=== PATIENT | male | born 1960 | race Caucasian/White ===

== ENCOUNTER 2016-10-03 04:21 | Observation (INO) | payer SELFPAY ==
[~2016-10-03] VITALS: Ht 180.3 cm; Wt 63.4 kg
--- NOTE | ~2016-10-03 | OR ---
PATIENT'S NAME: MCKENNA [facility] AGE: 56 Y [address] ROOM: [address] [address] [place] [facility] [place]: 10[place]03[place] OR/Procedure Report DISCHARGE DATE: 10/04/2016 FAMILY PHYSICIAN: Maxine Guzman MD ATTENDING PHYSICIAN: MAXINE MCCLENDON SURGEON: Maxine Mcclendon MD WEIGHTS AND MEASURES INSPECTOR: Francisco Castillo CST/CAM. DATE OF PROCEDURE: 10/03/2016 PREOPERATIVE DIAGNOSIS: Comminuted extra-articular left distal radius fracture. POSTOPERATIVE DIAGNOSIS: Comminuted extra-articular left distal radius fracture. PROCEDURE PERFORMED: Closed reduction of left distal radius fracture with application of long-arm splint. ANESTHESIA: General anesthesia. ESTIMATED BLOOD LOSS: Nil. COMPLICATIONS: None. IMPLANTS: None. TOURNIQUET TIME: 0 minutes. INDICATION FOR PROCEDURE: Mr. Ortiz is a 56-year-old male, presenting with a markedly angulated, dorsally displaced, extra-articular distal radius fracture with significant metaphyseal comminution. Risks, benefits, limitations, and alternatives to this procedure have been thoroughly reviewed and informed consent has been granted. The patient is granted informed consent for open reduction and internal fixation if necessary. The patient understands that close clinical and radiographic followup will be necessary to ensure that satisfactory alignment has been maintained. DESCRIPTION OF PROCEDURE: The patient was positioned supine. General anesthesia was administered. The splint was removed from the left hand. There was a large amount of volar wrist swelling. Skin is intact throughout the left upper extremity. 2+ radial pulse. A reduction maneuver was performed via longitudinal traction followed by ulnar translation and volar translation of the distal fragment. The fracture readily reduced and was surprisingly stable. AP and lateral fluoroscopic PATIENT'S NAME: MCKENNA [facility] AGE: 56 Y [address] ROOM: [address] [address] [place] [facility] [place]: 10/03/2016 OR/Procedure Report DISCHARGE DATE: 10/04/2016 FAMILY PHYSICIAN: Maxine Guzman MD ATTENDING PHYSICIAN: MAXINE MCCLENDON imaging demonstrated anatomic restitution of length, inclination, and tilt of the articular surface relative to the diaphysis. The large radial-sided metaphyseal segmentally comminuted fragment did not reduce perfectly, but the fracture remained stable, nonetheless. There was no tenting of the skin from the metaphyseal comminuted radial-sided fragments. A well-padded, well-molded, sugar-tong splint was applied and allowed to harden. After the splint had hardened, repeat AP, lateral, and oblique fluoroscopic imaging once again confirmed. The articular surface had been restored to its appropriate length, inclination, and tilt relative to the diaphysis. Capillary refill remained excellent at the tips of all digits. The patient was extubated and transported to the post anesthesia care unit in stable, comfortable condition. MD LIA AGOSTO/shiva /[id number] d: 10/04/16 0207 t: 10/16/16 2222, OPERATIVE SUMMARY
--- NOTE | ~2016-10-03 | HP ---
PATIENT'S NAME: JAYASHREE ORTIZ [facility] AGE: 56 Y [address] ROOM: [place] [address] [place] [facility] [place]: 10[place]03[place] History & Physical DISCHARGE DATE: FAMILY PHYSICIAN: PHYSICIAN, UNKNOWN ATTENDING PHYSICIAN: MAXINE MCCLENDON DATE OF SERVICE: HISTORY OF PRESENT ILLNESS: Mr. Ortiz is a 56-year-old male, transferred from [facility] this morning after he was evaluated in the [place] [facility] with a chief complaint of left wrist pain and swelling. The patient denies history of preexisting left wrist pain or swelling prior to tripping and falling (landing on an outstretched left hand) last evening. I was called by the [facility] Emergency Room and accepted the patient here for transfer given the fact that he was noted to have a severely displaced fracture. He reports that analgesia has been adequate overnight. He denies numbness or paresthesias in his left hand. He has been keeping the hand elevated (as per our recommendations). He is right-hand dominant. His present medications and past medical history are otherwise as specified on his chart. The emergency room doctor informed me that there was no associated skin lesion. The patient re-emphasizes this. SOCIAL HISTORY: [facility] reported to us that the patient is homeless. He is right- hand dominant. PHYSICAL EXAMINATION: GENERAL: Alert, well-hydrated, well-nourished male, who appears somewhat older than his stated age. He is very comfortable. He reports that analgesia has been adequate. VITAL SIGNS: Respiratory rate 16. EXTREMITIES: There is a volar splint on the left wrist, which is not removed. He has good capillary refill and good sensation to light touch at the tips of all 5 digits of the left hand. There is no swelling or tenderness at the left elbow. RADIOGRAPHS: Left wrist radiographs demonstrate a comminuted fracture at the metaphyseal- diaphyseal junction of the distal radius. There is approximately 100% displacement and marked angulation. There is no evident articular incongruity. IMPRESSION: Left distal radius fracture. PATIENT'S NAME: JAYASHREE ORTIZ [facility] AGE: 56 Y [address] ROOM: [place] [address] [place] [facility] [place]: 10/03/2016 History & Physical DISCHARGE DATE: FAMILY PHYSICIAN: PHYSICIAN, UNKNOWN ATTENDING PHYSICIAN: MAXINE MCCLENDON RECOMMENDATIONS: I have discussed operative and nonoperative options. I have recommended that we proceed with attempted closed reduction. However, I have informed the patient that the fracture is highly likely to be unstable enough to warrant open reduction and internal fixation. He gives informed consent for both. We have discussed potential adverse sequelae of the injury itself as well as risks, benefits, limitations, and alternatives to surgery. We have specifically discussed the potential for malunion, nonunion, neurovascular complications, infection, and potential need for further surgery. He understands that it will take a minimum of 2 months for the fracture to heal and that several weeks of immobilization will be indicated. He understands and accepts this and wishes to proceed. We will proceed with surgery this morning (pending operating room availability and medical clearance). MD LIA AGOSTO/hebertl /[id number] D: [id number] T: [id number] HISTORY & PHYSICAL
--- NOTE | ~2016-10-03 | CON ---
PATIENT'S NAME: JAYASHREE ANDRES [facility] AGE: 56 Y [address] ROOM: [place] [address] LOCATION: [facility] [place] ADMIT DATE: 10/03/2016 Consultation DISCHARGE DATE: FAMILY PHYSICIAN: Maxine Guzman MD ATTENDING PHYSICIAN: MAXINE MCCLENDON HISTORY OF PRESENT ILLNESS: The patient is a 56-year-old gentleman with past medical history of alcohol abuse and tobacco use, who presents from [facility] with left wrist fracture. The patient reports that he had a mechanical fall a week ago and has had progressive pain. The patient was evaluated in [place] and was found to have left wrist fracture and was sent to our hospital for surgical intervention. The patient reports that he is physically active. He works in construction. Denies any shortness of breath, chest pain, fever, dyspnea on exertion, abdominal pain, nausea, vomiting, fever, or chills. The patient apparently lives in his car and reports that he has smoked for close to 40 years. He also reports that he drinks 2 to 3 beers a day. His last drink was 3 days ago. He denies any history of withdrawal symptoms. MEDICAL HISTORY: Tobacco use. Alcohol abuse. SURGICAL HISTORY: Has had knee surgery at age 16. FAMILY HISTORY: He does not remember any family history that runs in his family. He reports that his parents both of them of old age. SOCIAL HISTORY: Drinks 2 to 3 beer a day. Last drink three 3days ago. Has smoked for 40 years. Lives by himself in a car. MEDICATION: Ibuprofen and Tylenol. REVIEW OF SYSTEMS: All systems have been reviewed and are negative except for what mentioned in the HPI. PHYSICAL EXAMINATION: VITAL SIGNS: Blood pressure of 137/81, temperature of 98.1, respiratory rate of 16, and pulse of 72. HEAD: Atraumatic. Normocephalic. NECK: No JVD. MOUTH AND THROAT: Poor oral dentition. The patient does not have teeth. PATIENT'S NAME: JAYASHREE ANDRES [facility] AGE: 56 Y [address] ROOM: [place] [address] LOCATION: [facility] [place] ADMIT DATE: 10/03/2016 Consultation DISCHARGE DATE: FAMILY PHYSICIAN: Maxine Guzman MD ATTENDING PHYSICIAN: MAXINE MCCLENDON CHEST: Clear to auscultation bilaterally. NOSE: No nasal discharge. EAR: No ear discharge. HEART: Regular rate rhythm. No murmur, rubs, or gallops. ABDOMEN: Soft, nontender, and nondistended. SKIN: Warm to touch. EXTREMITY: Left upper extremity dressing clean, dry, and intact. YOUTH LIAISON OFFICER: The patient is alert and oriented. Motor and sensory grossly intact. LABORATORY DATA: CBC: White blood cell count of 7.3, hemoglobin of 13.3, hematocrit of 41.2 with MCV of 90.2. BUN of 9, creatinine of 0.6, chloride of 110 CO2 of 21, and potassium 4. EKG normal sinus rhythm. ASSESSMENT AND PLAN: The patient is a 56-year-old gentleman with past medical history of alcohol abuse and tobacco use, who presents here with left wrist fracture. The patient is scheduled for surgery today. 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 The patient has a history of tobacco use. Discussed about tobacco cessation. EKG normal sinus rhythm. LABORATORY DATA: Within normal limits. The patient has acceptable risk for proposed surgery. The patient understands the risks associated with surgery. The patient is stable for surgery. 1. Tobacco use, greater than 3 minutes and less than 10 minutes of tobacco cessation was discussed. 2. Alcohol abuse. Last drink 3 days ago and denies history of withdrawal. We will start the patient on thiamine 100 mg daily. We will follow clinically for withdrawal. Greater than 30 minutes was spent on patient care including chart review and lab and EKG analysis. The patient questions answered satisfactory. Discuss case with nursing staff. Thank you very much for involving me in care of this patient. FRANK LI MD AD/modl PATIENT'S NAME: JAYASHREE ANDRES [facility] AGE: 56 Y [address] ROOM: [id number] [place] [id number] LOCATION: [facility] [place]MIT DATE: 10/03/2016 Consultation DISCHARGE DATE: FAMILY PHYSICIAN: Maxine Guzman MD ATTENDING PHYSICIAN: MAXINE MCCLENDON /[id number] d: 10/03/16 1446 t: 10/12/16 1601, CONSULTATION REPORT
[2016-10-03] MEDS ORDERED: TYLENOL325 MG PO (05:16)
[2016-10-03] MEDS ORDERED: ADVIL200 MG PO (05:18)
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
[2016-10-03 09:21] LABS: BASOPHIL % 0.5 %; EOSINOPHIL # 0.1 K/uL (0.0-0.5); EOSINOPHIL % 1.5 %; HEMATOCRIT 41.2 % (37.0-53.0); HEMOGLOBIN 13.3 g/dL (12.0-17.0); IMMATURE GRANULOCYTE % 0.4 %; LYMPHOCYTE # 1.7 K/uL (0.8-4.0); LYMPHOCYTE % 22.6 %; MCH 29.1 pg (27.0-34.0); MCHC 32.3 gm/dL (32.0-36.5); MCV 90.2 fl (83.0-98.0); MPV 11.8 fl (9.4-12.4); NEUTROPHIL # (ANC) 4.5 K/uL (1.4-9.0); NRBC % 0 /100WBC (0-0.00); PLATELET COUNT 146 K/uL (150-450); RBC 4.57 M/uL (4.00-6.00); RDW-CV 15.7 % (11.9-14.6); WBC 7.3 K/uL (4.0-11.0)
[2016-10-03 09:36] LABS: CALCIUM 8.4 mg/dL (8.5-10.5); CHLORIDE 110 mMol/L (96-110); CO2 21 mMol/L (22-32); CREATININE 0.6 mg/dL (0.6-1.3); ESTIMATED GFR (MDRD EQUATION) > 60; SODIUM 140 mMol/L (135-145)
[2016-10-03 09:45] LABS: BLOOD UREA NITROGEN 9 mg/dL (6-24)
--- NOTE | 2016-10-03 15:41 | NUR ---
Introduced self and role of care management to patient. He states that he lives in [place] by himself. With further questioning he lives in his [employer] [place] pickup. I did ask him if this was by choice. He stated "well lucia I only get food stamps to live on." I asked him if he had Medicaid or got a Social Security check and he stated "no". 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 He states that he has 3 sisters that live in [place]. He states they are all "too busy to worry about me". I did ask him what his discharge plans were. He stated he plans on going back to [place]. When I asked him how he was planning on getting back to [place] he stated "I don't know." I asked him if he thought any of his sisters would come pick him up and he states "well no I couldn't expect them to do that, that would be [address] to drive." I explained that I really did not have any transportation available to get him back to [place]. He stated I could call his sister Monty and see if she knew he was here and could come get him. He says he asked the [place] [facility] to notify her last night. I called Monty Cortes at [phone] had to leave a voicemail message. I notified her that her brother was here and would need a ride back to [place] and to please call Care Management or the floor nurse. I did ask Danny if he had ever been to [facility] the homeless residential in [place]. He stated "ya I think so." He says he would not be oppossed to going there on discharge if they could help him get back to [place]. I did tell him that there is a possibility that he will go home tomorrow. He denied any needs at this time. Will continue to follow. wo
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
--- NOTE | 2016-10-03 16:21 | NUR ---
Significant Event:Is A/O.Back from PACU at 1340.IV put to SL.Taking flds well.Had closed reduction of Lt.wrist.Has gauze with wrap on & Lt.arm is in a sling.Has been up in room & up to BR with standby assist---does well.Has been pretty comfortable & no N/V.Can prob.go home if he can find a ride back to [facility].At mnis time is trying to get a hold of his sister or his taker off drying kiln. Follow up:
--- NOTE | 2016-10-03 19:05 | NUR ---
SEVERAL CALL MADE TODAY TO ARRANGE FOR JAYASHREE TO HAVE RIDE HOME. HE SPOKE TO HIS SISTER QUENTIN AND HE TELLS ME THAT SHE WILL NOT COEM TO GET HIM. I OFFERED TO HELP HIM CALL FRIENDS BUT HE TELLS ME HE DOES NOT HAVE ANY ONE THAT HE CAN CALL. I OFFERED TO HAVE HIM GO TO [facility] BUT HE IS NOT OPENED TO THIS AND THEY DO NOT HAVE A BED. I NOTIFIED [facility], AND [facility] BUT THEY ARE NOT ABLE TO ASSIT WITH TRANSPORTATION. SPOKE TO SUKHWINDER DIRECTOR FOR AND SHE HAS DECIDED THAT AFTER TRING TO GET OTHER RESOURCES TO CALL [facility] OR [facility]. I NOTIIFED THE [employer] SERVICE BUT HAD TO LEAVE A MESSAGE ON VOICE MAIL AND NOT SURE THEY WILL CALL BACK. I NOTIFIED [facility] AND SPOKE TO FORREST SHE IS GOING TO TRY TO ARRANGE TRANSPROTATION FOR TOMORROW AM THIS IS THE SOONEST THAT SHE CAN ARRANGE IT. ATTEMPTED TO CONTACT THE SISTER SEVERAL MORE TIMES BUT SHE DOES NOT ANSWER HER PNONE. AND I ASKED JAYASHREE IF HE WOULD THINK OF SOMEONE THAT I COULD CALL AND HE IS NOT OF ANY HELP AND TELLS THAT HE DOES NOT KNOW ANYONE.
--- NOTE | 2016-10-03 19:30 | NUR ---
RECEIVED CALL FROM FORREST WITH [facility], SHE REPORTS THAT THEY WILL BE HERE AT 0900 TO GET PATIENT TOMORROW. I HAVE UPDATED PATIENT AND HE IS IN AGREEMENT TO THIS. PATIENT AND NURSE HAVE BEEN UPDATED THAT HE NEEDS TO BE [facility] AT 0850 TOMORROW AM.
--- NOTE | 2016-10-04 04:36 | NUR ---
Pt. AA&OX3. Pleasant and cooperative with all cares. IV on R) forearm. Saline locked. Up ab [place]. Neuro checks good. Ice bag with pillowcase on L) wrist. Last tylenol given at 0110. Will discharge today at 0850 by [facility] to [place]. [facility] 0900.
[2016-10-04] MEDS ORDERED: HYDROCODON-ACE1 EAC4 PO (08:09)
[2016-10-04] MEDS ORDERED: THIAMINE HCL100 MG PO (08:10)
== END 2016-10-04 08:50 | disposition disaster alternative care site (69) ==
LOC: GMSU 04:21
PROVIDERS: Internal Medicine; ADMIT Orthopaedic Surgery
PROC: 0PSJXZZ Reposition Left Radius, External Approach (ICD-10-PCS; principal; 2016-10-03)
DX: S52.552A Other extraarticular fracture of lower end of left radius, initial encounter for closed fracture (principal); F17.200 Nicotine dependence, unspecified, uncomplicated; Z98.890 Other specified postprocedural states; W19.XXXA Unspecified fall, initial encounter
CPT/HCPCS: G0378; J0690; J2270; J3010; J7030; J7120; J7121